=== PATIENT | female | born 1955 | race Caucasian/White ===

== ENCOUNTER 2017-08-02 08:26 | Emergency (ER) | payer OTHER ==
[2017-08-02] MEDS ORDERED: Morphine 4 MG/ML Carpuject ONE (08:52)
[2017-08-02] MEDS ORDERED: Ondansetron HCl/PF 4 MG/2 ML Vial ONE (08:53)
[2017-08-02 09:07] LABS: ALT (SGPT) 17 U/L (8-55); AST (SGOT) 15 U/L (5-34); Alkaline Phosphatase 64 U/L (40-150); Anion Gap 17 mmol/L (10-20); BUN (Urea Nitrogen) 26 mg/dL (9.8-20.1); Bilirubin, Total 0.3 mg/dL (0.2-1.2); Calc. Creatinine Clearance 0 mL/min (70-130); Calcium 9.3 mg/dL (7.8-10.44); Carbon Dioxide 19 mmol/L (23-31); Chloride 110 mmol/L (98-107); Estimated GFR-MDRD 87; Globulin 2.6 g/dL (2.4-3.5); Glucose 168 mg/dL (80-115); Lipase 57 U/L (8-78); Potassium 3.8 mmol/L (3.5-5.1); Protein, Total 6.6 g/dL (6.0-8.3); Sodium 142 mmol/L (136-145)
[2017-08-02 09:25] LABS: #Basophils 0.1 thou/uL (0.0-0.2); #Eosinphils 0.2 thou/uL (0.0-0.7); #Lymphocytes 1.7 thou/uL (1.20-3.40); #Monocytes 0.6 thou/uL (0.11-0.59); #Neutrophils 4.6 thou/uL (1.40-6.50); %Basophils 1.2 % (0.0-1.0); %Eosinophils 2.1 % (0.0-10.0); %Lymphocytes 23.6 % (21.0-51.0); %Monocytes 8.2 % (0.0-10.0); %Neutrophils 64.9 % (42.0-75.0); Hemoglobin 13.3 g/dL (12.0-16.0); Mean Corpuscular HGB CONC 33.6 g/dL (32.0-36.0); Mean Corpuscular Hemoglobin 31.5 pg (27.0-31.0); Mean Corpuscular Volume 93.7 fl (81.0-99.0); Mean Platelet Volume 7.1 fL (7.4-10.4); Platelet Count 284 thou/uL (130-400); Red Blood Cell (RBC) Count 4.22 mill/uL (4.20-5.40); White Blood Cell (WBC) Count 7.1 thou/uL (4.8-10.8)
[2017-08-02 09:34] LABS: Bilirubin Negative (Negative); Blood, Urine Large (Negative); Clarity Cloudy (Clear); Glucose, Urine (Dipstick) Negative (Negative); Leukocyte Negative (Negative); Nitrite Negative (Negative); Protein, Urine (Dipstick) 30 mg/dL (Neg-Trace); Specific Gravity, Urine 1.025 (1.005-1.030); Urobilinogen 0.2 mg/dL (0.2-1.0); pH, Urine 5.5 (5.0-9.0)
[2017-08-02 09:41] LABS: Bacteria/HPF 1+ HPF (None Seen); RBC/HPF GREATER THAN 50-TNTC HPF (0-3); Squamous Epithelial 0-3 HPF (0-3)
[2017-08-02 09:42] LABS: Other Microscopic Description LARGE MUCOUS
[2017-08-02] MEDS ORDERED: Ketorolac Tromethamine 30 MG/ML VIAL ONE (10:42)
--- NOTE | 2017-08-02 10:49 | CT ---
NONCONTRAST CT ABDOMEN AND PELVIS: Date: 08-02-17 History: Left upper abdominal pain. History of renal stones and back pain. Comparison: None available. FINDINGS: There is bilateral hydronephrosis more prominent on the left. 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 There is an approximately 3 mm karen culus seen near the region of the inferior aspect of the left renal pelvis near the left UJP but the etiology for the hydronephrosis on the left is thought to be related to a UPJ type obstruction as opp osed to this left ureteral calculus. Nevertheless, there is mild perinephric stranding on the left wh ich is asymmetric to the right. Findings could be related to associated obstruction related to both U PJ type obstruction and this left UPJ calculus. Calculus is best seen on the coronal images. No right renal calculus is visualized. There is evidence of prior hysterectomy. Low density lesion seen within each lobe of the liver, largest in the right hepatic lobe measuring 5. 7 cm. These low density lesions do demonstrate fluid attenuation on this nonenhanced CT scan examinat ion, probably represent hepatic cysts. The lung bases, spleen, pancreas, bilateral adrenal glands, and partially distended urinary bladder d emonstrate a grossly normal nonenhanced CT appearance. A few scattered colonic diverticula are seen. The appendix is visualized and normal in caliber and gas filled. There is mild haziness in the central mesentery which is overall nonspecific. No enlarged lymph nodes are seen. This could be related to mesenteric panniculitis. IMPRESSION: 1. Bilateral hydronephrosis, most likely related to UPJ type obstructions bilaterally. However, there is also an approximately 3 mm calculus in the region of the left UPJ, and there is mild perinephric and proximal periureteral stranding seen on the left. There is a slightly greater degree of hydroneph rosis on the left, and findings may be related to UPJ obstruction with exacerbation of this obstructi on due to the left UPJ calculus. 2. Probable hepatic cysts. 3. Colonic diverticulosis. 4. Hysterectomy. 5. Hazy density in the central mesentery which is nonspecific but could potentially be related to mes enteric panniculitis. POS: [facility]
[2017-08-02] MEDS ORDERED: cefTRIAXone\\ROCEPHIN 1 GM VIAL ONE (10:54)
[2017-08-02] MEDS ORDERED: Sterile Water 100 ML ONE (10:56)
== END 2017-08-02 11:39 | disposition home or self-care (01) ==
LOC: BURERS 08:26
DX: N13.2 Hydronephrosis with renal and ureteral calculous obstruction (principal); K58.9 Irritable bowel syndrome, unspecified; I10 Essential (primary) hypertension
CPT/HCPCS: 36415; 74176; 80053; 81003; 81015; 83690; 85025; 85379; 93005; 96361; 96374; 96375; J0696; J1885; J2270; J2405